=== PATIENT | female | born 1960 | race Caucasian/White ===

== ENCOUNTER → 2016-10-04 | Outpatient (CLI) | payer BC | END | disposition home or self-care (01) | LOC: GMAB 12:15 | PROVIDERS: ATTEND Family Medicine | DX: Z00.01 Encounter for general adult medical examination with abnormal findings (principal) ==

== ENCOUNTER → 2016-10-15 | Outpatient (CLI) | payer BC ==
--- NOTE | 2016-10-16 10:06 | US ---
EXAM DESCRIPTION: Thyroid CLINICAL HISTORY: 56 years Female, NONTOXIC SINGLE THYROID NODULE Grayscale, color Doppler imaging of the thyroid gland was performed. Static images were saved to the patient's medical record. The right lower lobe measures 4.9 cm in the craniocaudal dimension, the left measures 4.5 cm. Multiple small bilateral thyroid nodules are noted. The largest is seen within the right thyroid lobe and measures 1.5 x 1.0 x 1.0 cm in diameter. It contains a hypoechoic halo which is usually associated with a benign etiology. The isthmus measures 2 mm in diameter. IMPRESSION: Multinodular goiter noted. Electronically signed by: Michael Haskins MD 10/16/2016 10:05 AM CDT
== END | disposition home or self-care (01) ==
LOC: US 13:19
PROVIDERS: ATTEND Family Medicine
DX: E04.1 Nontoxic single thyroid nodule (principal)

== ENCOUNTER → 2017-04-29 | Outpatient (CLI) | payer BC ==
--- NOTE | 2017-05-01 13:51 | MAM ---
EXAM DESCRIPTION: 3D Screening BILATERAL : Digital Mammography. CLINICAL HISTORY: 57 years Female SCREENING . No complaints. No family history of breast cancer. Postmenopausal/hysterectomy. No HRT. Previous benign breast biopsy. COMPARISON: 2-D digital screening bilateral study 03/27/2016 and 05/11/2015. No prior reports available. Reports from prior examinations also reviewed. Report from prior examination also reviewed. TECHNIQUE: Bilateral CC and MLO projection full-field images, 3-D tomosynthesis digital mammographic technique. Also bilateral synthesized CC/ MLO full-field images. CAD not utilized. FINDINGS: The breast parenchymal density pattern is: Scattered areas of fibroglandular density. No skin thickening or nipple retraction bilateral solitary microcalcifications. Intramammary lymph nodes bilaterally. Asymmetrically dense tissue in the upper outer quadrant of the anterior middle third of the left breast compared to the right which is stable compared to the prior studies.. No focal, stellate mass or density, focal asymmetry , and no suspicious microcalcifications bilaterally. Stable mammograms compared to prior study, taking into account differences in mammographic technique IMPRESSION: BI-RADS CATEGORY: 2 - BENIGN FINDINGS. FOLLOW UP: Routine digital bilateral screening, one year interval from April 2017. Written communication explaining the IMPRESSION and follow-up, will be mailed to the patient and referring health care provider. According to the [employer], yearly mammograms are recommended starting at age 40 and continuing as long as a woman is in good health. Any breast change noted on a breast self-exam should be reported promptly to the patient's healthcare provider. Breast MRI is recommended for women with an approximately 20-25% or greater lifetime risk of breast cancer, including women with a strong family history of breast or ovarian cancer and women who have been treated for Hodgkin's disease. A negative mammographic report should not delay tissue diagnosis in patients with significant clinical history or physical findings. Extremely dense breast tissue limits the sensitivity of digital mammography. Electronically signed by: Harry Reece MD 05/01/2017 1:50 PM [facility]
== END ==
LOC: MAMMO 10:53
PROVIDERS: ATTEND Obstetrics & Gynecology
DX: Z12.31 Encounter for screening mammogram for malignant neoplasm of breast (principal)
CPT/HCPCS: 77063; G0202

== ENCOUNTER → 2017-10-14 | Outpatient (CLI) | payer BC | LOC: GMAB 11:15 | PROVIDERS: ATTEND Family Medicine | DX: Z00.00 Encounter for general adult medical examination without abnormal findings (principal) ==

== ENCOUNTER → 2017-10-21 | Outpatient (CLI) | payer BC ==
--- NOTE | 2017-10-21 17:26 | CT ---
EXAM DESCRIPTION: Abdomen/Pelvis w/wo Contrast: Computed Tomography. CLINICAL HISTORY: ASYMPTOMATIC MICROSCOPIC HEMATURIA COMPARISON: Ultrasound thyroid gland on the same visit. TECHNIQUE: Spiral-axial scans at 5.0 mm intervals through the abdomen and pelvis before and after standard dose nonionic IV contrast. No oral contrast. Coronal and sagittal 5.0 mm reconstructions. 5 mm Delayed helical-axial scans, liver through the pubic symphysis. No adverse reactions. Total Exam DLP 1869.96 mGy - cm. This exam was performed according to our departmental CT dose-optimization program which includes automated exposure control, adjustment of the mA and/or kV according to patient size and/or use of iterative reconstruction technique; to reduce radiation dose to as low as reasonably achievable (ALARA). FINDINGS: Kidneys and Ureters: No mass or abnormal enhancement in the kidneys. No hydronephrosis or perinephric fluid. Bilateral ureters normal caliber with no periureteral edema. No contrast seen in the distal ureters or bladder. Pelvic Organs: No radiodense stones in the urinary bladder. Minimal wall thickening. Lateral to the right side of the rectum and abutting the right obturator region and the vaginal cuff is a soft tissue mass containing calcification with adjacent fatty stranding and irregular enhancement. No definite fluid. Measures approximately 4.1 x 2.3 cm in the transverse plane and 1.8 cm craniocaudal.. Remainder of the vaginal cuff is unremarkable. Ovaries or small lymph nodes in the adnexa. Lung bases and pleura: Negative. Liver, Stomach, Spleen, Adrenal Glands: Stomach unremarkable. Solid organs are negative. Pancreas, Gallbladder, Ducts: Surgical clips in the gallbladder fossa. No free fluid. Common bile duct dilated consistent with cholecystectomy. Pancreas negative. Mesentery: Stranding in the pelvis as previously described no free air in the abdomen or pelvis or ascites mid abdomen. Aorta: Minimal intimal wall thickening, normal caliber Small Bowel: Negative. Terminal Ileum/Cecum: Unremarkable. Appendix visualized with normal caliber normal mesentery. Colon: Diffuse fecal material throughout with minimal redundancy of the sigmoid colon and diverticula. No abnormal wall thickening or pericolonic fatty stranding. Spine and Bony Pelvis: Minimal narrowing of thoracic disc spaces spondylosis L5-S1 with canal and foraminal narrowing. Minimal hip joint space narrowing laterally with prominent lateral acetabular coverage. Abdominal Wall/Back Soft Tissues: Negative. IMPRESSION: 1. Irregularly enhancing tissue with calcification in the right obturator region lateral to the rectum and abutting the right vaginal cuff, approximately 4.1 cm in greatest diameter. This could represent early abscess or abnormally enlarged obturator nodes. Minimal fluid in the cul-de-sac. Ovaries were not definitely seen. No obstructed bowel. No radiodense stones in the urinary bladder. Minimal bladder wall thickening. Contrast did not enter the bladder. Distal ureters normal caliber. Consider follow-up pelvic ultrasound. 2. Diverticulosis of the distal colon but no diverticulitis or other complications.. Electronically signed by: Harry Reece MD 10/21/2017 5:25 PM CDT
--- NOTE | 2017-10-21 17:48 | US ---
THYROID ULTRASOUND CLINICAL INFORMATION: Thyroid nodules. TECHNIQUE: Standard transcutaneous scanning, two-dimensional and Doppler modes. COMPARISON: Thyroid ultrasound 10/15/2016. FINDINGS: Thyroid size: Right 4.3 x 1.6 x 1.4 cm. Left 4.2 x 1.5 x 1.0 cm. Isthmus thickness 2.5 mm. Texture: Heterogeneous Estimated total number of nodules >/=1 cm: 1 Number of spongiform nodules >/=2 cm not described below (TR1): 0 Number of mixed cystic and solid nodules >/=1.5 cm not described below (TR2): 0 Nodule #: 1 Maximum size: 1.5 cm; All dimensions 1.0 x 0.9 cm Location: right; mid Composition: solid/almost completely solid (2) Echogenicity: isoechoic (1) Shape: not [id number] (0) Margins: smooth (0) Echogenic foci: none (0) ACR TI-RADS total points: 3. ACR TI-RADS risk category: TR3 (3 points) Significant change in size (>/= 20% in two dimensions and minimal increase of 2 mm): No Change in features: No Change in ACR TI-RADS risk category: No ACR TI-RADS recommendation: Follow-up ultrasound in 1 year Nodule #: 2 Maximum size: 0.9 cm; All dimensions 0.6 x 0.5 cm Location: right; upper Composition: solid/almost completely solid (2) Echogenicity: hypoechoic (2) Shape: not [id number] (0) Margins: ill-defined (0) Echogenic foci: none (0) ACR TI-RADS total points: 4. ACR TI-RADS risk category: TR4 (4-6 points) Significant change in size (>/= 20% in two dimensions and minimal increase of 2 mm): Yes Change in features: No Change in ACR TI-RADS risk category: No ACR TI-RADS recommendation: No further follow-up Nodule #: 3 Maximum size: 0.9 cm; All dimensions 0.8 x 0.5 cm Location: left; lower Composition: solid/almost completely solid (2) Echogenicity: hypoechoic (2) Shape: not [id number] (0) Margins: smooth (0) Echogenic foci: none (0) ACR TI-RADS total points: 4. ACR TI-RADS risk category: TR4 (4-6 points) Significant change in size (>/= 20% in two dimensions and minimal increase of 2 mm): Yes Change in features: No Change in ACR TI-RADS risk category: No ACR TI-RADS recommendation: No further follow-up Nodule #: 4 Maximum size: 0.7 cm; All dimensions 0.6 x 0.5 cm Location: left; mid Composition: solid/almost completely solid (2) Echogenicity: very hypoechoic (3) Shape: not [id number] (0) Margins: smooth (0) Echogenic foci: none (0) ACR TI-RADS total points: 5 ACR TI-RADS risk category: TR4 (4-6 points) Significant change in size (>/= 20% in two dimensions and minimal increase of 2 mm): No Change in features: No Change in ACR TI-RADS risk category: No ACR TI-RADS recommendation: No further follow-up Scanning of the adjacent soft tissues shows no distinct solid mass or cyst. No large calcifications or parenchymal edema. No abnormal Doppler vascularity. IMPRESSION: 1. 1.5 cm solid isoechoic nodule (#1) in the right mid thyroid lobe is risk category ACR TI-RADS 3 with follow-up ultrasound recommended in one year interval. Please see below.* 2. The remaining nodules bilaterally are ACR TI-RADS 4 risk category but due to largest diameter less than 1 cm, no follow-up is recommended. *ACR TI-RADS recommendations: TR5 (>/=7 points) - FNA if >/=1 cm, follow-up if 0.5 - 0.9 cm every year for 5 years TR4 (4-6 points) - FNA if >/=1.5 cm, follow-up if 1 - 1.4 cm in 1, 2, 3 and 5 years TR3 (3 points) - FNA if >/=2.5 cm, follow -up if 1.5 - 2.4 cm in 1, 3 and 5 years TR2 (2 points) and TR1 (0 points) - No FNA or follow-up * ACR TI-RADS recommends that no more than two nodules with the highest ACR TI-RADS total point should be biopsied and no more than four nodules should be followed. Electronically signed by: Harry Reece MD 10/21/2017 5:46 PM CDT
== END ==
LOC: US 08:12
PROVIDERS: ATTEND Family Medicine
DX: R31.21 Asymptomatic microscopic hematuria (principal); K57.30 Diverticulosis of large intestine without perforation or abscess without bleeding; E04.1 Nontoxic single thyroid nodule

== ENCOUNTER → 2017-10-23 | Outpatient (CLI) | payer BC | LOC: LAB.O 15:13 | PROVIDERS: ATTEND Urology | DX: R31.0 Gross hematuria (principal) ==

== ENCOUNTER → 2017-12-16 | Outpatient (CLI) | payer BC ==
--- NOTE | 2017-12-16 21:09 | US ---
EXAM DESCRIPTION: Pelvis Transvaginal: Ultrasound. CLINICAL HISTORY: N89.9. Prior hysterectomy. Abnormal soft tissue mass with calcifications. COMPARISON: CT scan abdomen and pelvis 10/21/2017. TECHNIQUE: Endovaginal scanning; Gale-scale and Doppler modes. FINDINGS: Uterus has been surgically removed. Cul-de-sac contains no fluid. Complex lobulated mass, posterior to the right aspect of the vaginal cuff with lobular somewhat ill-defined borders and mixed echogenicity. Also contains calcifications. Dimensions are 3.6 x 1.1 x 3.2 cm. No fluid component. Increased vascularity on Doppler. Bilateral ovaries are not visualized. No adnexal mass or free fluid. IMPRESSION: Vascular soft tissue mass with calcifications posterior to the right aspect of the vaginal cuff with maximum diameter 3.6 cm. No fluid component and not likely an abscess. Cannot exclude solid scar tissue or neoplasm. Electronically signed by: Harry Reece MD 12/16/2017 9:07 PM CDT
== END ==
LOC: US 11-27 15:09
PROVIDERS: ATTEND Obstetrics & Gynecology
DX: N89.9 Noninflammatory disorder of vagina, unspecified (principal)

== ENCOUNTER → 2018-05-05 | Outpatient (CLI) | payer BC ==
--- NOTE | 2018-05-06 20:46 | MAM ---
EXAM DESCRIPTION: 3D Screening BILATERAL : Digital Mammography. CLINICAL HISTORY: 58 years Female ANNUAL SCREENING . No complaints. No personal or family history of breast cancer. Childbirth. Partial hysterectomy 13 years ago. No HRT. Lifetime risk of developing breast cancer (Tyrer-Cuzick model)(%): 9.1 COMPARISON: Bilateral screening digital breast tomosynthesis 04/29/2017.. No prior reports available. TECHNIQUE: Bilateral CC and MLO projection full-field images, digital tomosynthesis mammographic technique. Bilateral digital 2-D full-field MLO images. CAD not available for tomosynthesis or 2-D images. FINDINGS: The breast parenchymal density pattern is: Scattered areas of fibroglandular density. No skin thickening or nipple retraction. Bilateral solitary microcalcifications. Asymmetrically denser fibroglandular tissues in the upper outer quadrant of the middle third of the left breast compared to the right breast. This asymmetry is stable. No new focal, stellate mass or density, focal asymmetry , and no suspicious microcalcifications bilaterally. Stable mammograms compared to prior study. IMPRESSION: Benign exam. BIRAD CATEGORY: 2 BENIGN FINDINGS. RECOMMENDATIONS: FOLLOW UP: Routine digital bilateral mammographic screening, one year interval from April 2018. Written communication explaining the IMPRESSION and follow-up, will be mailed to the patient and referring health care provider. According to the [employer], yearly mammograms are recommended starting at age 40 and continuing as long as a woman is in good health. Any breast change noted on a breast self-exam should be reported promptly to the patient's healthcare provider. Breast MRI is recommended for women with an approximately 20-25% or greater lifetime risk of breast cancer, including women with a strong family history of breast or ovarian cancer and women who have been treated for Hodgkin's disease. A negative mammographic report should not delay tissue diagnosis in patients with significant clinical history or physical findings. Extremely dense breast tissue limits the sensitivity of digital mammography. Electronically signed by: Harry Reece MD 05/06/2018 8:45 PM [employer]
== END ==
LOC: MAMMO 09:00
PROVIDERS: ATTEND Family Medicine
DX: Z12.31 Encounter for screening mammogram for malignant neoplasm of breast (principal)

== ENCOUNTER → 2019-05-06 | Outpatient (CLI) | payer BC ==
--- NOTE | 2019-05-08 15:42 | MAM ---
EXAM DESCRIPTION: 3D Screening BILATERAL : Digital Mammography. CLINICAL HISTORY: 59 years Female ANNUAL SCREENING . No complaints. No personal or family history of breast cancer. Menarche age 14. Childbirth. Postmenopausal 10+ years no HRT. Right breast benign biopsy. Lifetime risk of developing breast cancer (Tyrer-Cuzick model)(%): 8.9. COMPARISON: Bilateral screening digital breast tomosynthesis 05 May 2018 and 29 April 2017. TECHNIQUE: Bilateral CC and MLO projection full-field images, digital tomosynthesis mammographic technique. Bilateral digital 2-D full-field MLO images. CAD not available for tomosynthesis or 2-D images. FINDINGS: The breast parenchymal density pattern is: Scattered areas of fibroglandular density. No skin thickening or nipple retraction. Asymmetry of increased fibroglandular tissues in the upper outer quadrant of the left breast compared to the right breast is again noted. Bilateral solitary microcalcifications. Also coarse calcifications in the left breast. Posterior medial left breast skin mole. Left axillary lymph node. No new focal, stellate mass or density, focal asymmetry , and no suspicious microcalcifications bilaterally. Stable mammograms compared to prior study. IMPRESSION: Benign exam. BIRAD CATEGORY: 2 BENIGN FINDINGS. RECOMMENDATIONS: FOLLOW UP: Routine digital bilateral mammographic screening, one year interval from April 2019. Written communication explaining the IMPRESSION and follow-up, will be mailed to the patient and referring health care provider. According to the [employer], yearly mammograms are recommended starting at age 40 and continuing as long as a woman is in good health. Any breast change noted on a breast self-exam should be reported promptly to the patient's healthcare provider. Breast MRI is recommended for women with an approximately 20-25% or greater lifetime risk of breast cancer, including women with a strong family history of breast or ovarian cancer and women who have been treated for Hodgkin's disease. A negative mammographic report should not delay tissue diagnosis in patients with significant clinical history or physical findings. Extremely dense breast tissue limits the sensitivity of digital mammography. Electronically signed by: Harry Reece MD 05/08/2019 3:41 PM [employer]
== END ==
LOC: MAMMO 10:01
PROVIDERS: ATTEND Obstetrics & Gynecology
DX: Z12.31 Encounter for screening mammogram for malignant neoplasm of breast (principal)

== ENCOUNTER → 2019-11-23 | Outpatient (CLI) | payer BC | LOC: GMAE 11:10 | PROVIDERS: ATTEND Family Medicine | DX: Z00.00 Encounter for general adult medical examination without abnormal findings (principal) ==

== ENCOUNTER → 2020-04-07 | Outpatient (CLI) | payer BC | LOC: GMAE 14:36 | PROVIDERS: ATTEND Family Medicine | DX: E03.9 Hypothyroidism, unspecified (principal); Z79.899 Other long term (current) drug therapy; I10 Essential (primary) hypertension ==

== ENCOUNTER → 2020-04-26 | Outpatient (CLI) | payer BC ==
--- NOTE | 2020-04-27 12:48 | US ---
US THYROID CLINICAL STATEMENT:60 years Female NODULE. No palpable mass, no prior surgical or medical therapy. COMPARISON: None TECHNIQUE: Transcutaneous scanning, grayscale and Doppler modes. FINDINGS: Size right thyroid lobe: 4.3 x 1.6 x 1.2 cm Size left thyroid lobe: 3.5 x 1.0 x 1.0 cm Size isthmus: 0.17 cm Estimated total number of nodules greater than or equal to 1 cm: 1. Nodule 1: Size: 1.7 x 1.0 x 0.9 cm Location: Right Mid Composition: solid or almost completely solid: 2 points Echogenicity: isoechoic: 1 point Shape: wider than tall: 0 points Margins: smooth: 0 points Echogenic foci: none: 0 points ACR Total Points: 3; ACR TI-RADS risk category: TR3 - mildly suspicious nodule. Nodule 2: Size: 0.9 x 0.6 x 0.5 cm Location: Right Upper Composition: spongiform: 0 points Echogenicity: isoechoic: 1 point Shape: wider than tall: 0 points Margins: smooth: 0 points Echogenic foci: none: 0 points ACR Total Points: 1; ACR TI-RADS risk category: TR1 - not suspicious nodule Nodule 3: Size: 0.8 x 0.5 x 0.4 cm Location: Left Mid Composition: solid or almost completely solid: 2 points Echogenicity: hypoechoic: 2 points Shape: wider than tall: 0 points Margins: smooth: 0 points Echogenic foci: none: 0 points ACR Total Points: 4; ACR TI-RADS risk category: TR4 - moderately suspicious nodule. Soft tissue around the thyroid gland with no dominant solid mass, no distinct cyst, no fluid collection, no large calcifications. IMPRESSION: 1. Nodule 1: ACR TI-RADS 2017 Category TR3. Recommend: Follow-up ultrasound in 1 year.. Recommendations based upon [employer] Best Practice recommendations and ACR TI-RADS 2017 guidelines. Please see below*. 2. Nodule 2: ACR TI-RADS 2017 Category TR1. Recommend: No further follow-up. 3. Nodule 3: ACR TI-RADS 2017 Category TR4. Recommend: No further follow-up. 4. Soft tissue around the thyroid gland is unremarkable. *ACR TI-RADS 2017 Recommendations for imaging follow-up of nodules (baseline study): TR1: No FNA or follow up TR2: No FNA or follow up TR3: FNA if >/= 2.5 cm, follow up if 1.5 - 2.4 cm in 1, 3, and 5 years TR4: FNA if >/= 1.5 cm, follow up if 1.0 - 1.4 cm in 1, 2, 3, and 5 years TR5: FNA if >/= 1.0 cm, follow up if 0.5 - 0.9 cm every year for 5 years ACR TI-RADS recommends that no more than two nodules with the highest ACR TI-RADS total point should be biopsied and no more than four nodules should be followed. These recommendations do not apply to patients with increased risk for thyroid cancer or patients with symptomatic thyroid disease. Electronically signed by: Harry Reece MD 04/27/2020 12:46 PM [facility]
== END ==
LOC: US 09:58
PROVIDERS: ATTEND Family Medicine
DX: E04.2 Nontoxic multinodular goiter (principal)

== ENCOUNTER → 2020-05-09 | Outpatient (CLI) | payer BC ==
--- NOTE | 2020-05-10 15:33 | MAM ---
EXAM DESCRIPTION: 3D Screening BILATERAL : Digital Mammography. CLINICAL HISTORY: 60 years Female SCREENING MAMMO no complaints. No family history breast cancer. Menarche age 14. Childbirth age 27. Partial hysterectomy age 47. Prior benign biopsy right breast. No HRT. Lifetime risk of developing breast cancer (Tyrer-Cuzick model)(%): 8.5. COMPARISON: Bilateral screening digital breast tomosynthesis April 2019 and April 2018.. TECHNIQUE: Bilateral CC and MLO projection full-field images, digital tomosynthesis mammographic technique. Bilateral digital 2-D full-field MLO images. CAD available for 2-D images. FINDINGS: The breast parenchymal density pattern is: Scattered areas of fibroglandular density. No skin thickening or nipple retraction. Solitary microcalcifications. Coarse calcifications. Cluster of benign type calcifications. "Eggshell" calcifications. Axillary nodes. Asymmetrically increased fibroglandular tissues in the upper outer quadrant of the middle third of the left breast is stable. No interval change right breast intramammary lymph node middle third. No new focal, stellate mass or density, focal asymmetry , and no suspicious microcalcifications bilaterally. Stable mammograms compared to prior study. IMPRESSION: Benign exam. BIRAD CATEGORY: 2 BENIGN FINDINGS. RECOMMENDATIONS: FOLLOW UP: Routine digital bilateral mammographic screening, one year interval from 2019. Written communication explaining the IMPRESSION and follow-up, will be mailed to the patient and referring health care provider. According to the [employer], yearly mammograms are recommended starting at age 40 and continuing as long as a woman is in good health. Any breast change noted on a breast self-exam should be reported promptly to the patient's healthcare provider. Breast MRI is recommended for women with an approximately 20-25% or greater lifetime risk of breast cancer, including women with a strong family history of breast or ovarian cancer and women who have been treated for Hodgkin's disease. A negative mammographic report should not delay tissue diagnosis in patients with significant clinical history or physical findings. Extremely dense breast tissue limits the sensitivity of digital mammography. Electronically signed by: Harry Reece MD 05/10/2020 3:31 PM [facility]
== END ==
LOC: MAMMO 10:00
PROVIDERS: ATTEND Family Medicine
DX: Z12.31 Encounter for screening mammogram for malignant neoplasm of breast (principal)